=== PATIENT | female | born 1965 | race Caucasian/White ===

== ENCOUNTER → 2016-05-06 | Outpatient (CLI) | payer BC | END | disposition home or self-care (01) | LOC: C.LAB1850 11:05 | PROVIDERS: ATTEND Obstetrics & Gynecology | DX: N95.1 Menopausal and female climacteric states (principal) ==

== ENCOUNTER → 2016-08-22 | Outpatient (CLI) | payer BC ==
[~2016-08-22] MED LIST: ACETTAB15 PO; FEXO1TAB49 PO; IBUP-1050 PO; MULT-506 PO; SYMBICORT INH
--- NOTE | 2016-08-23 13:28 | MAMMOGRAPHY REPORT ---
BILATERAL DIGITAL SCREENING MAMMOGRAM TOMOSYNTHESIS WITH CAD: 08/22/2016 CLINICAL HISTORY: Routine screening. TECHNIQUE: Breast tomosynthesis in addition to standard 2D mammography was performed. Current study was also evaluated with a Computer Aided Detection (CAD) system. COMPARISON: Comparison is made to exams dated: 04/24/2015 mammogram, 02/11/2014 mammogram, 08/02/2013 m ammogram, 01/04/2013 mammogram, 12/26/2011 mammogram - [facility], and 03/11/2008. BREAST COMPOSITION: There are scattered areas of fibroglandular density in both breasts. FINDINGS: There are multiple bilateral circumscribed masses scattered in the breasts. Diffuse bilat eral microcalcifications. Stable asymmetry in the anterior left breast on the CC view. No new suspi cious mass, architectural distortion or cluster of microcalcifications is seen. IMPRESSION: ACR BI-RADS CATEGORY 1: NEGATIVE There is no mammographic evidence of malignancy. A 1 year screening mammogram is recommended. The pa tient will receive written notification of the results. Approximately 10% of breast cancers are not detected with mammography. A negative mammographic report should not delay biopsy if a clinically suggestive mass is present. Nereida Romero M.D. ay/:08/22/2016 16:25:21 Lunch Truck Operator: Barbara RAJPUT(Preeti)(M), [facility] letter sent: Normal 1/2 BI-RADS Code: ACR BI-RADS Category 1: Negative
== END | disposition home or self-care (01) ==
LOC: C.MAMM 09:17
PROVIDERS: ATTEND Obstetrics & Gynecology
DX: Z12.31 Encounter for screening mammogram for malignant neoplasm of breast (principal)

== ENCOUNTER → 2016-12-21 | Outpatient (CLI) | payer BC ==
[2016-12-21 12:10] LABS: HEMATOCRIT 39.5 % (37-47); MEAN CELL VOLUME 73.4 fL (80-100); MEAN CORPUSCULAR HEMOGLOBIN 24.5 pg (25-34); MEAN CORPUSCULAR HGB CONC 33.4 g/dl (32-36); MEAN PLATELET VOLUME 8.8 fL (7.4-10.4); PLATELET COUNT 296 K/uL (130-400); RED BLOOD COUNT 5.38 M/uL (4.2-5.4); WHITE BLOOD COUNT 6.18 K/uL (4.8-10.8)
== END | disposition home or self-care (01) ==
LOC: C.LAB1850 10:29
PROVIDERS: ATTEND Obstetrics & Gynecology
DX: Z01.812 Encounter for preprocedural laboratory examination (principal)

== ENCOUNTER → 2016-12-26 | Day surgery (SDC) | payer BC ==
[2016-12-09 15:51] VITALS: Ht 166.4 cm; Wt 81.8 kg
[~2016-12-26] VITALS: Ht 166.4 cm; Wt 81.8 kg
[~2016-12-26] MED LIST changes: +ATROPINE SULFATE 0.1 MG/ML 5ML SYR IV PRN; +DEXAMETHASONE SOD INJ 4 MG/ML VIAL ONE; +EpHEDrine SULFATE INJ 50 MG/ML AMP IV PRN; +FENTANYL CITRATE INJ 50 MCG/1 ML 2 ML VIAL IV PRN; +FENTANYL CITRATE INJ 50 MCG/1 ML 2 ML VIAL ONE; +IBUPROFEN 200 MG TAB ONE; +IBUPROFEN 600 MG TAB PO PRN; +KETOROLAC TROMETHAMINE 30 MG/ML VIAL ONE; +LIDOCAINE HCL 2% 2 ML VIAL (20MG/ML) ONE; +MIDAZOLAM HCL 1 MG/ML 2ML VIAL ONE; +ONDANSETRON INJ 2 MG/ML 2 ML VIAL IV PRN; +ONDANSETRON INJ 2 MG/ML 2 ML VIAL ONE; +PROPOFOL IV EMULSION 10 MG/ML 20 ML VIAL IV ONE; +SODIUM CHLORIDE 0.9% 1000ML 1,000 ML IV SCH
[2016-12-26] MEDS: LACTATED RINGER'S 1000ML 1,000 ML IV SCH ×2 (06:48→08:08)
--- NOTE | 2016-12-26 06:48 | History & Physical Bridge - SC ---
H&P Re-Evaluation Bridge Note: I have examined the patient, reviewed the History & Physical and in the interval since the performance of the History & Physical I have noted the following changes of clinical significance: No changes noted
--- NOTE | 2016-12-26 07:09 | HISTORY & PHYSICAL EXAMINATION ---
DATE OF ADMISSION: 12/26/2016 The patient is for surgery on 12/26/2016. CHIEF COMPLAINT: Menorrhagia and dysfunctional uterine bleeding. HISTORY OF PRESENT ILLNESS: The patient is a 51-year-old white female 4, para 2-0-2-2. The patient is experiencing extremely heavy menses having to change super tampon every 45 minutes for 1-2 days when she menstruates. She has also had episodes of dysfunctional bleeding over the past year. The patient had been taking control pills until September of 2015, but stopped the pills at that time due to headaches. The patient is also having irregular bleeding. She underwent an ultrasound on 08/25/2016 and this showed a uterus of 310 mL and an endometrial lining of 10.1 mm. Pap smear was last done on 12/28/2015 and this was negative. We have had long discussions of her various options and the patient wishes to proceed with endometrial ablation. ALLERGIES: TO ERYTHROMYCIN AND AZITHROMYCIN. MEDICATIONS: The patient uses clindamycin gel topically. She also takes Megan p.r.n. Also, Excedrin for headaches. In addition, she uses Flonase or Nasacort occasionally. She also has a prescription for triamcinolone 0.1% cream to use topically as needed. She also has a prescription for rizatriptan benzoate 10 mg oral tablet p.r.n. migraine. In addition, she has been given a prescription for ProAir RespiClick 108 to use 1-2 puffs up to every 4 hours as needed for cough or chest tightness. ILLNESSES: The patient lists acne, migraines, anxiety. PAST SURGICAL HISTORY: The patient has a history of section. She has also had a D&C. In addition, tonsillectomy with adenoidectomy as well as removal of wisdom teeth. FAMILY HISTORY: Her father has had TIAs. SOCIAL HISTORY: The patient is . She denies smoking cigarettes or drinking alcohol. PHYSICAL EXAMINATION: VITAL SIGNS: Height 5 feet 5-1/2 inches, weight 188 pounds. HEENT: Grossly within normal limits. NECK: Supple without masses. CHEST: Her lungs are clear without wheezing. HEART: Regular rate and rhythm. No murmurs, gallops or rubs. ABDOMEN: Soft, nontender with no masses. PELVIC: External genitalia normal. Vagina pink and stimulated. Cervix pink and closed with no lesions visible. Uterus within normal limit size, nontender, adnexa nontender with no masses palpable. Rectovaginal exam negative. EXTREMITIES: No cyanosis, clubbing or edema. IMPRESSION: A 51-year-old white female with menorrhagia and dysfunctional uterine bleeding. PLAN: The patient is for hysteroscopic guided endometrial ablation by rollerball or NovaSure method with or without dilation and curettage and with or without removal of endometrial polyp/lesion. The patient is aware of the risks of infection, bleeding, perforation of the uterus, failure to improve the bleeding and risk of requiring additional treatment. She is aware of the alternatives of use of other hormones, Mirena IUD, hysterectomy and doing nothing. The patient wishes to proceed with the surgery as above. MTDD
--- NOTE | 2016-12-26 07:43 | [facility] Post Operative Brief Note ---
Immediate Operative Summary Operative Date Dec 26, 2016. Pre-Operative Diagnosis Menorrhagia Post-Operative Diagnosis Same as pre-op Procedure(s) Performed Dilatation And Curettage, Hysteroscopy, Endometrial Ablation with Novasure Surgeon Dr. Peralta Senior Systems Architect Surgeon(s) None Estimated Blood Loss <10ML Findings See dictated note. Specimens A:Endometrial tissue Complication(s) None Disposition Recovery Room / PACU
--- NOTE | 2016-12-26 07:51 | Discharge Instructions-SurgCtr ---
Discharge Instructions Date of Service Dec 26, 2016. Visit Reason for Visit: Menorrhagia Discharge Discharge Diagnosis / Problem: S/P Hysteroscopy, D&C, Novasure endometrial ablation Discharge Goals Goal(s): Diagnostic testing, Therapeutic intervention Medications Stopped Medications Name(s): adarsh, last dose 12/21/16 Activity Recommendations Activity Limitations: per Instructions/Follow-up section Anesthesia . Post Anesthesia Instructions: If you have had General Anesthesia or IV Sedation: * Do not drive today. * Resume driving when surgeon permits. * Do not make important decisions or sign legal documents today. * Call surgeon for: 1. Temperature elevations greater than 101 degrees F. 2. Uncontrollable pain. 3. Excessive bleeding. 4. Persistent nausea and vomiting. 5. Medication intolerance (nausea, vomiting or rash). * For nausea and vomiting use only clear liquids such as: tea, soda, bouillon until nausea subsides, then gradually increase diet as tolerated. * If you have any concerns or questions, call your surgeon's office. If physician is unavailable and it is an emergency, call 911 or go to the nearest emergency room. . Instructions / Follow-Up Instructions / Follow-Up ACTIVITY RECOMMENDATIONS: * Avoid tampons, douching, hot tubs, pools, and intercourse until bleeding has stopped. * May shower as usual. * No strenuous activity for 24-48 hours. After 24-48 hours, you may do anything you feel like doing (driving and sports are okay). SPECIAL CARE INSTRUCTIONS: Special Diet: * Mild nausea may occur in the immediate post-operative period. * Take clear liquids such as tea, cola or bouillon until all nausea has subsided; you may then resume your normal diet. Special Care: * Light bleeding and vaginal spotting can last from a few days to 3-4 weeks. Call your doctor if bleeding becomes heavier than the heaviest part of your period. Call if you have persistent cramping or foul vaginal discharge. [phone] * Check your temperature twice a day for one week. If it goes above 100.4 degrees Fahrenheit (38.0 Celsius), notify your doctor. * Call your doctor's office for an appointment for 4 weeks after your surgery. FOLLOW-UP VISIT: Call your doctor's office for an appointment for 4 weeks after your surgery. [phone] Dr Peralta Diet Recommendations Home Diet: resume previous diet Procedures Procedures Performed: Dilatation And Curettage, Hysteroscopy, Endometrial Ablation with Novasure Pending Studies Studies pending at discharge: yes List of pending studies: Pathology report on tissue removed from uterus. We will call you with that report within one week. Medical Emergencies . Who to Call and When: Medical Emergencies: If at any time you feel your situation is an emergency, please call 911 immediately. . Non-Emergent Contact Non-Emergency issues call your: Plaster Mechanic Call Non-Emergent contact if: temperature is above 100.5, your pain is worsening . . "Provider Documentation" section prepared by Uyen Peralta. .
--- NOTE | 2016-12-26 08:09 | Anesthesia Progress Nt - [facility] ---
Anesthesia Post Op Note Date & Time Dec 26, 2016 at 08:09 Vital Signs Pain Intensity: 5.0 Vital Signs Past 12 Hours Date Time Temp Pulse Resp B/P (MAP) Pulse Ox O2 Delivery O2 Flow Rate FiO2 12/26/16 07:44 36.5 89 16 127/80 99 Mask 6 12/26/16 06:31 36.6 90 16 121/82 (95) 97 Room Air Notes Mental Status: alert / awake / arousable, participated in evaluation Pt Amnestic to Procedure: Yes Nausea / Vomiting: adequately controlled Pain: adequately controlled Airway Patency, RR, SpO2: stable & adequate BP & HR: stable & adequate Hydration State: stable & adequate Anesthetic Complications: no major complications apparent
[2016-12-26 09:16] VITALS: BP 107/65; PULSE 60; TEMP 36.4; O2SAT 97
--- NOTE | 2016-12-26 09:17 | OPERATIVE REPORT ---
DATE OF OPERATION: 12/26/2016 PREOPERATIVE DIAGNOSIS: Menorrhagia. POSTOPERATIVE DIAGNOSIS: Menorrhagia. PROCEDURE: Hysteroscopy, D&C and NovaSure ablation. SURGEON: Uyen Peralta MD. MOLD STAMPER AND REPAIRER: General. ANESTHESIOLOGIST: Rodolfo Coreas DO. DESCRIPTION OF PROCEDURE: The patient was taken to the operating room where general anesthesia was administered. After an adequate level was obtained, she was placed in dorsal lithotomy position. Vulva, vagina, and cervix were prepped with Betadine solution. The patient was draped. Bladder was drained with a straight catheter. Gonzalez retractor was placed into the posterior vagina. The anterior lip of the cervix was grasped with an Allis clamp. The cervix was dilated to a #23. Hysteroscope was introduced into the endometrial cavity. There were no lesions or growths within the cavity. Photos were taken. Hysteroscope was removed. The endometrial cavity was curetted with a serrated curette. A small amount of tissue was obtained. Measurements were taken and the uterus sounded to 11 cm. Cervix was 6 cm in length. The cervix was then further dilated up to a #27. NovaSure instrument was inserted into the uterus. The NovaSure expanded to 4.7 cm. CO2 test was undertaken and passed. The NovaSure instrument was then activated. The ablation was carried out for 1 minute 13 seconds. NovaSure was then removed. Hysteroscope was reintroduced into the cavity and good eber noted. Estimated blood loss, less than 10 mL The patient tolerated the procedure well and was taken to the recovery room in good condition. I attest to the content of the Intraoperative Record and any orders documented therein. Any exceptions are noted below. PARESH
== END | disposition home or self-care (01) ==
LOC: X.SURG 06:13
PROVIDERS: ATTEND Obstetrics & Gynecology
DX: N92.0 Excessive and frequent menstruation with regular cycle (principal); N93.8 Other specified abnormal uterine and vaginal bleeding

== ENCOUNTER → 2017-01-25 | Outpatient (CLI) | payer BC ==
[~2017-01-25] MED LIST changes: -ATROPINE SULFATE 0.1 MG/ML 5ML SYR IV PRN; -DEXAMETHASONE SOD INJ 4 MG/ML VIAL ONE; -EpHEDrine SULFATE INJ 50 MG/ML AMP IV PRN; -FENTANYL CITRATE INJ 50 MCG/1 ML 2 ML VIAL IV PRN; -FENTANYL CITRATE INJ 50 MCG/1 ML 2 ML VIAL ONE; -IBUPROFEN 200 MG TAB ONE; -IBUPROFEN 600 MG TAB PO PRN; -KETOROLAC TROMETHAMINE 30 MG/ML VIAL ONE; -LIDOCAINE HCL 2% 2 ML VIAL (20MG/ML) ONE; -MIDAZOLAM HCL 1 MG/ML 2ML VIAL ONE; -ONDANSETRON INJ 2 MG/ML 2 ML VIAL IV PRN; -ONDANSETRON INJ 2 MG/ML 2 ML VIAL ONE; -PROPOFOL IV EMULSION 10 MG/ML 20 ML VIAL IV ONE; -SODIUM CHLORIDE 0.9% 1000ML 1,000 ML IV SCH
== END | disposition home or self-care (01) ==
LOC: C.PAPS 14:29
PROVIDERS: ATTEND Obstetrics & Gynecology
DX: Z12.4 Encounter for screening for malignant neoplasm of cervix (principal)

== ENCOUNTER → 2017-05-22 | Outpatient (CLI) | payer BC | END | disposition home or self-care (01) | LOC: C.LABMFLN 16:41 | PROVIDERS: ATTEND Family Medicine | DX: R51 Headache (principal); H53.9 Unspecified visual disturbance ==

== ENCOUNTER → 2017-10-18 | Outpatient (CLI) | payer BC ==
--- NOTE | 2017-10-18 13:39 | MAMMOGRAPHY REPORT ---
BILATERAL DIGITAL SCREENING MAMMOGRAM TOMOSYNTHESIS WITH CAD: 10/18/2017 CLINICAL HISTORY: Routine screening. TECHNIQUE: Breast tomosynthesis in addition to standard 2D mammography was performed. Current study w as also evaluated with a Computer Aided Detection (CAD) system. COMPARISON: Comparison is made to exams dated: 08/22/2016 mammogram, 04/24/2015 mammogram, 02/11/2014 mammogram, 01/04/2013 mammogram, 12/26/2011 mammogram - [facility], and 03/11/2008. BREAST COMPOSITION: There are scattered areas of fibroglandular density in both breasts. FINDINGS: No suspicious masses, calcifications, or areas of architectural distortion are noted in either breast . There has been no significant interval change compared to prior exams. Scattered bilateral benign-a ppearing calcifications are not significantly changed. Asymmetry in the left medial breast on the cc view is stable compared to multiple prior exams including the 2011 exam. Benign intramammary lymph nodes in bilateral upper outer quadrants are stable. IMPRESSION: ACR BI-RADS CATEGORY 2: BENIGN There is no mammographic evidence of malignancy. A 1 year screening mammogram is recommended.( 019) The patient will receive written notification of the results. Some breast cancers are not detected with mammography. A negative mammographic report should not patti y biopsy if a clinically suggestive mass is present. Prisca Maldonado M.D. ah/:10/18/2017 13:21:44 Postal Service Mail Processor: RT Antonia(Preeti)(M), [facility] letter sent: Normal 1/2 BI-RADS Code: ACR BI-RADS Category 2: Benign
== END | disposition home or self-care (01) ==
LOC: C.MAMM 12:29
PROVIDERS: ATTEND Obstetrics & Gynecology
DX: Z12.31 Encounter for screening mammogram for malignant neoplasm of breast (principal)